=== PATIENT | female | born 1970 | race Caucasian/White ===

== ENCOUNTER 2025-03-05 10:43 | Emergency (ER) | payer MEDICAID, OTHER ==
[~2025-03-05] VITALS: Ht 154.9 cm; Wt 73.6 kg
[2025-03-05 10:46] VITALS: BP 143/76; PULSE 69; RESP 18; TEMP 97.9; O2SAT 97
[2025-03-05] MEDS ORDERED: METF-1211 PO (10:56)
[2025-03-05 11:20] LABS: GLUCOMETER DEV NAME(LOC) ER.7; GLUCOSE,POINT OF CARE 252 MG/DL (70-110)
[2025-03-05] MEDS: BACITRACIN 0.9 GM PACKET OINTMENT TP ONE (13:15)
[2025-03-05] MEDS: ACETAMINOPHEN 500 MG TABLET PO ONE (13:15)
[2025-03-05] MEDS: PERTUSS(ACELL),DIPH,TET/PF 0.5 ML SYRINGE [ADULT] IM. ONE (13:17)
[2025-03-05] MEDS: LIDOCAINE 1% 10 ML VIAL SQ ONE (13:17)
== END 2025-03-05 13:53 | disposition home or self-care (01) ==
LOC: EMS 10:47
DX: S01.112A Laceration without foreign body of left eyelid and periocular area, initial encounter (principal); E11.9 Type 2 diabetes mellitus without complications; Z98.890 Other specified postprocedural states; Z79.899 Other long term (current) drug therapy; W22.09XA Striking against other stationary object, initial encounter; Y93.89 Activity, other specified; Y92.89 Other specified places as the place of occurrence of the external cause; Y99.8 Other external cause status
CPT/HCPCS: 99283; 82962; 90715; 90471; 12011; J3490

== ENCOUNTER 2025-03-12 08:56 | Emergency (ER) | payer OTHER ==
[~2025-03-12] VITALS: Ht 154.9 cm; Wt 72.0 kg
[~2025-03-12 08:56] MED LIST: METF-1211 PO
[2025-03-12 09:13] VITALS: BP 120/68; PULSE 69; RESP 16; TEMP 97.9; O2SAT 99
== END 2025-03-12 09:40 | disposition home or self-care (01) ==
LOC: EMS 08:58
DX: S01.81XD Laceration without foreign body of other part of head, subsequent encounter (principal); E11.9 Type 2 diabetes mellitus without complications; Z98.890 Other specified postprocedural states; Z79.899 Other long term (current) drug therapy; X58.XXXD Exposure to other specified factors, subsequent encounter
CPT/HCPCS: 99281; Z7502